=== PATIENT | female | born 2000 | race Caucasian/White ===

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

== ENCOUNTER 2021-04-23 13:57 | Emergency (ER) | payer OTHER ==
[2021-04-23 14:31] VITALS: BP 149/86; PULSE 88; TEMP 98.2; BMI 37.8
[2021-04-23 16:34] LABS: BASO % 0.5 % (0-2.0); EOS % 1.6 % (0-4.5); HEMATOCRIT 35.8 % (32.4-45.2); MCH 29.5 pg (25.7-33.7); MCHC 33.6 g/dl (32.0-36.0); MEAN CELL VOLUME 87.6 fl (80-96); MEAN PLT VOLUME 9.8 fl (7.5-11.1); MONO % 5.5 % (3.8-10.2); NEUT % 68.4 % (42.8-82.8); PLATELET COUNT 234 10^3/uL (134-434); RBC 4.09 M/mm3 (3.60-5.2); WHITE BLOOD COUNT 7.6 K/mm3 (4.0-10.0)
[2021-04-23 16:38] LABS: CHLORIDE 105 mmol/L (98-107); SODIUM 139 mmol/L (136-145)
[2021-04-23 16:40] LABS: ALBUMIN 4.2 g/dl (3.4-5.0); ANION GAP 7 MMOL/L (8-16); BLOOD UREA NITROGEN 8.3 mg/dL (7-18); CALCIUM 9.3 mg/dL (8.5-10.1); CO2 26 mmol/L (21-32)
[2021-04-23 16:41] LABS: GLUCOSE,RANDOM 84 mg/dL (74-106)
[2021-04-23 16:43] LABS: SGOT/AST 8 U/L (15-37); SGPT/ALT 12 U/L (13-61)
[2021-04-23 16:44] LABS: CREATININE 0.6 mg/dL (0.55-1.3)
[2021-04-23 16:45] LABS: BILIRUBIN,TOTAL 0.6 mg/dL (0.2-1); TOT PROT 8.2 g/dl (6.4-8.2)
[2021-04-23 16:46] LABS: ALK PHOS 67 U/L (45-117)
[2021-04-23] MEDS ORDERED: NAPROXEN 500 MG TABLET PO ONE (16:54)
[2021-04-23] MEDS ORDERED: NAPROXEN 500 MG TABLET ONE ×2 (17:03→17:13)
== END 2021-04-23 17:38 | disposition home or self-care (01) ==
LOC: JER 13:57
DX: M94.0 Chondrocostal junction syndrome [Tietze] (principal)
CPT/HCPCS: 36415; 71046-TC-FY; 80053; 82550; 84484; 85025; 93005; 93010; 99284-25; C9803; U0003; U0005

== ENCOUNTER 2022-08-07 13:39 | Emergency (ER) | payer OTHER ==
[2022-08-07 14:17] VITALS: BP 124/71; PULSE 100; RESP 20; TEMP 99.1; BMI 37.8
[2022-08-07] MEDS ORDERED: KETOROLAC TROMETHAMINE 15 MG/ML VIAL IM ONE (14:39)
[2022-08-07] MEDS ORDERED: METHOCARBAMOL 500 MG TABLET PO ONE (14:40)
== END 2022-08-07 15:25 | disposition home or self-care (01) ==
LOC: JERFT 13:39
PROC: 3E023GC Introduction of Other Therapeutic Substance into Muscle, Percutaneous Approach (ICD-10-PCS; principal; 2022-08-07)
DX: M54.12 Radiculopathy, cervical region (principal)
CPT/HCPCS: 73030-TC-LT-FY; 99284-25

== ENCOUNTER 2023-11-29 02:08 | Emergency (ER) | payer BC, OTHER ==
[2023-11-29 02:23] VITALS: BP 134/82; PULSE 71; RESP 18; TEMP 98.3; BMI 32.5
[2023-11-29] MEDS ORDERED: IBUPROFEN 600 MG TABLET (FP) PO ONE ×3 (02:55→02:57)
[2023-11-29] MEDS: IBUPROFEN 600 MG TABLET (FP) PO ONE (02:58)
== END 2023-11-29 04:05 | disposition home or self-care (01) ==
LOC: JER 02:08
DX: S69.92XA Unspecified injury of left wrist, hand and finger(s), initial encounter (principal); W22.8XXA Striking against or struck by other objects, initial encounter
CPT/HCPCS: 73110-TC-LT-FY; 73130-TC-LT-FY; 99283-25